=== PATIENT | female | born 1970 | race Caucasian/White ===

== ENCOUNTER 2017-01-02 12:27 | Emergency (ER) | payer OTHER, SELFPAY ==
[~2017-01-02] VITALS: Ht 165.1 cm; Wt 67.1 kg
[2017-01-02] MEDS ORDERED: DULO1CAP3 (12:37)
[2017-01-02] MEDS ORDERED: RIZA10TA2 (12:37)
[2017-01-02] MEDS ORDERED: LEVO100T5 (12:37)
[2017-01-02] MEDS ORDERED: IPRATROPIUM 0.5MG/ALBUTEROL 2.5MG INH SOL UD 3ML (DUONEB)(J7620) NEB ONE (13:00)
[2017-01-02] MEDS ORDERED: PENI500T PO (14:21)
[2017-01-02] MEDS ORDERED: ALBUTEROL 90 MCG/ACT 8GM HFA INHALER INH ONE (14:30)
[2017-01-02 14:45] VITALS: BP 94/65
== END 2017-01-02 14:49 | disposition home or self-care (01) ==
LOC: M ED 12:27
DX: J02.0 Streptococcal pharyngitis (principal); R30.0 Dysuria; R06.2 Wheezing; F32.9 Major depressive disorder, single episode, unspecified; F17.210 Nicotine dependence, cigarettes, uncomplicated; Z79.899 Other long term (current) drug therapy

== ENCOUNTER → 2023-10-20 | Outpatient (REF) | payer SELFPAY, OTHER ==
[~2023-10-20] MED LIST: DULO1CAP6; LEVO100T5; PENI500T PO; RIZA10TA2
== END ==
LOC: M LAB REF 16:08
PROVIDERS: ATTEND Physician Assistant
DX: R30.0 Dysuria (principal)

== ENCOUNTER 2024-10-03 06:51 | Day surgery (SDC) | payer OTHER ==
[~2024-10-03] VITALS: Ht 165.1 cm; Wt 80.5 kg
[~2024-10-03 06:51] MED LIST changes: +ATOR1TAB21 PO; +BREO1INH INH; +BUSP5TAB PO; +MELO15TA28 PO; +RIZA10TA64 PO; +SYNT112T2 PO; +VENTAER INH
[2024-10-03] MEDS ORDERED: propofoL 200 MG/20 ML VIAL As Ordered ONE (06:52)
[2024-10-03] MEDS ORDERED: LIDOCAINE 2% INJ 100 MG/5 ML SYRINGE As Ordered ONE (06:52)
[2024-10-03 08:28] VITALS: TEMP 97
[2024-10-03 08:45] VITALS: BP 142/63; O2SAT 100
== END 2024-10-03 08:48 | disposition home or self-care (01) ==
LOC: M OPP 06:51
PROVIDERS: ATTEND Surgery
DX: Z12.11 Encounter for screening for malignant neoplasm of colon (principal); R19.5 Other fecal abnormalities; D12.6 Benign neoplasm of colon, unspecified; K57.30 Diverticulosis of large intestine without perforation or abscess without bleeding; Z91.048 Other nonmedicinal substance allergy status; Z79.51 Long term (current) use of inhaled steroids; Z79.899 Other long term (current) drug therapy; J45.909 Unspecified asthma, uncomplicated